=== PATIENT | male | born 1970 | race Caucasian/White ===

== ENCOUNTER 2020-03-28 18:01 | Emergency (ER) | payer MEDICARE, OTHER ==
[2020-03-28] MEDS ORDERED: Acetaminophen/HYDROcodone 325-5 MG Tab PO ONE (18:02)
--- NOTE | 2020-03-28 19:02 | EDM.PDOC ---
ED HPI GENERAL MEDICAL PROBLEM - General Chief Complaint: Lower Extremity Injury/Pain Stated Complaint: right knee injury Time Seen by Provider: 03/28/20 18:22 Source of Information: Reports: Patient History Limitations: Reports: No Limitations - History of Present Illness INITIAL COMMENTS - FREE TEXT/NARRATIVE: pts was in his wheelchair when it got caught and he fell forward and out of the chair. He states that he heard a pop and he has some pain in the lower right extremity. 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 He states that he has some feeling in the leg but it is very decreased. He is not able to move the leg due to the paralysis. The leg is rolled laterally but he states that it is always that way since the accident. He denies any other injuries. He is alert and oriented. Onset: Today Location: Reports: Lower Extremity, Right Worsens with: Reports: Movement Right Thigh Pain Score (Numeric/FACES): 5 - Related Data Allergies Allergy/AdvReac Type Severity Reaction Status Date / Time adhesive tape Allergy Itching Verified 03/28/20 18:13 ciprofloxacin [From Cipro] Allergy Hives Verified 03/28/20 18:13 enoxaparin [From Lovenox] Allergy Rash Verified 03/28/20 18:13 Home Meds: Home Meds Cholecalciferol (Vitamin D3) [Vitamin D3] 2,000 unit PO DAILY 03/28/20 [History] Gabapentin [Neurontin] 1,200 mg PO BID 03/28/20 [History] Herbal Drugs [Colon Herbal Cleanser] 1 tab PO DAILY 03/28/20 [History] Methadone 5 mg PO BID 03/28/20 [History] Methadone 10 mg PO BEDTIME 03/28/20 [History] Omeprazole 40 mg PO DAILY 03/28/20 [History] Sennosides/Docusate Sodium [Stool Softener-Laxative] 250 mg PO DAILY 03/28/20 [History] atenoloL [Atenolol] 50 mg PO DAILY 03/28/20 [History] Past Medical History - History Comment History Comment: See RN notes for past medical, social and surgical history. Social & Family History - Living Situation & Occupation Living situation: Reports: , with Spouse Occupation: Employed Review of Systems - Review of Systems Review Of Systems: See Below Constitutional: Reports: No Symptoms Eyes: Reports: No Symptoms Ears: Reports: No Symptoms Nose: Reports: No Symptoms Mouth/Throat: Reports: No Symptoms Respiratory: Reports: No Symptoms Cardiovascular: Reports: No Symptoms GI/Abdominal: Reports: No Symptoms, Other (has colostomy since accident.) Genitourinary: Reports: Other (has urostomy since accident.) Musculoskeletal: Reports: Leg Pain (right) Skin: Denies: Bruising, Wound Neurological: Reports: No Symptoms ED EXAM, GENERAL - Physical Exam Exam: See Below Exam Limited By: No Limitations General Appearance: Alert, WD/WN, Moderate Distress Nose: Normal Inspection Throat/Mouth: Normal Inspection, Normal Oropharynx Head: Atraumatic, Normocephalic Respiratory/Chest: No Respiratory Distress, Lungs Clear Cardiovascular: Regular Rate, Rhythm GI/Abdominal: Normal Bowel Sounds, Soft, Non-Tender Extremities: Other (left lower extremity is amputee. He has some pain to the right knee area. He has some sensation to the area. He has no ability to move the leg on his own.) Neurological: Alert, Oriented, Normal Cognition Skin Exam: Warm, Dry, Intact Course - Vital Signs Last Recorded V/S: Last Vital Signs Temp 98.7 F 03/28/20 18:09 Pulse 81 03/28/20 18:09 Resp 16 03/28/20 18:09 BP 111/85 03/28/20 18:09 Pulse Ox 97 03/28/20 18:09 - Orders/Labs/Meds Orders: Active Orders 24 hr Category Date Time Status Femur Min 2V Rt [CR] Stat Exams 03/28/20 18:56 Taken Knee 1V or 2V Rt [CR] Stat Exams 03/28/20 18:07 Taken Acetaminophen/HYDROcodone [[place] 325-5 MG] Med 03/28/20 19:43 Active 2 tab PO Q4H PRN Medication Orders Hydrocodone Bitart/Acetaminophen ([place] 325-5 Mg) 2 tab PO Q4H PRN PRN Reason: Pain Meds: Medications Generic Name Dose Route Start Last Admin Trade Name Freq PRN Reason Stop Dose Admin Hydrocodone Bitart/Acetaminophen 2 tab 03/28/20 19:43 [place] 325-5 Mg PO Q4H PRN Pain - Re-Assessments/Exams Free Text/Narrative Re-Assessment/Exam: 03/28/20 19:15 discussed xray with ortho occupational therapist rehab manager at [facility] one call Dr. Howard. He recommends a straight leg immobilizer for at least 4 weeks and then rexray. immobilizer applied. will send disc with xrays with pt to give to MD in [place] when he returns home. Departure - Departure Time of Disposition: 19:47 Disposition: Home, Self-Care 01 Condition: Good Clinical Impression: Fracture of distal femur Qualifiers: Encounter type: initial encounter Fracture type: closed Fracture morphology: unspecified fracture morphology Laterality: right Qualified Code(s): S72.401A - Unspecified fracture of lower end of right femur, initial encounter for closed fracture - Discharge Information *PRESCRIPTION DRUG MONITORING PROGRAM REVIEWED*: No *COPY OF PRESCRIPTION DRUG MONITORING REPORT IN PATIENT HUSSEIN: No Referrals: PCP,None [Primary Care Provider] - Forms: ED Department Discharge Additional Instructions: [place] 5/325 1 tablet every 4-6 hours as needed if current meds are not working. Can try extra strength tylenol prior to the norco follow up with ortho within a week for follow up when returning home keep brace on at all times. Sepsis Event Note (ED) - Evaluation Sepsis Screening Result: No Definite Risk - Focused Exam Vital Signs: Vital Signs Temp Pulse Resp BP Pulse Ox 03/28/20 18:09 98.7 F 81 16 111/85 97 - Problem List & Annotations (1) Fracture of distal femur SNOMED Code(s): 507025703 Code(s): S72.409A - UNSP FRACTURE OF LOWER END OF UNSP FEMUR, INIT FOR CLOS FX Status: Acute Priority: High Current Visit: Yes Qualifiers: Encounter type: initial encounter Fracture type: closed Fracture morphology: unspecified fracture morphology Laterality: right Qualified Code(s): S72.401A - Unspecified fracture of lower end of right femur, initial encounter for closed fracture - Problem List Review Problem List Initiated/Reviewed/Updated: Yes - My Orders Last 24 Hours: My Active Orders 03/28/20 18:07 Knee 1V or 2V Rt [CR] Stat 03/28/20 18:56 Femur Min 2V Rt [CR] Stat 03/28/20 19:43 Acetaminophen/HYDROcodone [[place] 325-5 MG] 2 tab PO Q4H PRN - Assessment/Plan Last 24 Hours: My Active Orders 03/28/20 18:07 Knee 1V or 2V Rt [CR] Stat 03/28/20 18:56 Femur Min 2V Rt [CR] Stat 03/28/20 19:43 Acetaminophen/HYDROcodone [[place] 325-5 MG] 2 tab PO Q4H PRN
[2020-03-28] MEDS ORDERED: Acetaminophen/HYDROcodone 325-5 MG Tab PO PRN (19:43)
[2020-03-28] MEDS ORDERED: Take Home: Acetaminophen/HYDROcodone 325-5 MG, 2 Tab Pack PO ONE (19:51)
== END 2020-03-28 20:14 | disposition home or self-care (01) ==
LOC: CC.ED 18:01
DX: S72.334A Nondisplaced oblique fracture of shaft of right femur, initial encounter for closed fracture (principal); Z88.1 Allergy status to other antibiotic agents; Z88.8 Allergy status to other drugs, medicaments and biological substances; Z91.048 Other nonmedicinal substance allergy status; Z79.899 Other long term (current) drug therapy; W05.0XXA Fall from non-moving wheelchair, initial encounter
CPT/HCPCS: 73560-RT; 99283; A9270-GY